=== PATIENT | male | born 1965 | race Caucasian/White ===

== ENCOUNTER 2017-03-25 09:35 | Emergency (ER) | payer OTHER ==
[~2017-03-25] VITALS: Ht 180.3 cm; Wt 102.1 kg
[~2017-03-25 09:35] MED LIST: MELOPOW PO
[2017-03-25] MEDS ORDERED: MULTCAP11 PO (09:45)
[2017-03-25] MEDS ORDERED: AMLO1TAB36 PO (09:45)
[2017-03-25] MEDS ORDERED: KETOROLAC 30 MG/ML VIAL (J1885) IV ONE (10:30)
[2017-03-25] MEDS ORDERED: GASTROGRAFIN SOLUTION 30ML (Q9963) PO ONE ×2 (10:40→11:10)
[2017-03-25 10:55] LABS: BASO % 0.5 % (0.0-1.0); EOS # 0.3 K/mm3 (0.0-0.50); EOS % 3.4 % (0.0-3.0); LARGE UNSTAINED CELL # 0.2 K/mm3 (0.0-0.4); LARGE UNSTAINED CELL % 1.9 % (0.0-4.0); LYMPH # 1.8 K/mm3 (1.5-4.5); LYMPH % 20.7 % (24.0-44.0); MEAN CORPUSCULAR HEMOGLOBIN 30.1 pg (27.0-33.0); MEAN CORPUSCULAR HGB CONC 34.4 g/dl (32.0-36.5); MEAN CORPUSCULAR VOLUME 87.5 fl (80.0-96.0); MONO # 0.5 K/mm3 (0.0-0.8); MONO % 6.6 % (0.0-5.0); NEUTROPHILS # 5.2 K/mm3 (1.8-7.7); NEUTROPHILS % 66.9 % (36.0-66.0); PLATELET COUNT, AUTOMATED 307 k/mm3 (150-450); RED CELL DISTRIBUTION WIDTH 12.9 % (11.5-14.5); WHITE BLOOD COUNT 7.8 K/mm3 (4.0-10.0)
[2017-03-25 11:15] LABS: ALBUMIN 4.3 GM/DL (3.2-5.2); ALBUMIN/GLOBULIN RATIO 1.59 (1.00-1.93); ALKALINE PHOSPHATASE 93 U/L (45-117); ALT/SGPT 39 U/L (12-78); ANION GAP 9 MEQ/L (8-16); AST/SGOT 18 U/L (15-37); BILIRUBIN,DIRECT 0.3 MG/DL (0.0-0.2); BILIRUBIN,TOTAL 1.3 MG/DL (0.2-1.0); BLOOD UREA NITROGEN 10 MG/DL (7-18); CARBON DIOXIDE LEVEL 26 MEQ/L (21-32); CHLORIDE LEVEL 104 MEQ/L (98-107); CREATININE FOR GFR 0.81 MG/DL (0.70-1.30); GLOMERULAR FILTRATION RATE > 60.0 (>56); GLUCOSE, FASTING 100 MG/DL (70-105); POTASSIUM SERUM 4.4 MEQ/L (3.5-5.1); SODIUM LEVEL 139 MEQ/L (136-145)
[2017-03-25] MEDS ORDERED: ISOVUE-370 76% 100ML VIAL (Q9967) As Ordered ONE (11:40)
[2017-03-25] MEDS ORDERED: TRAM50TA2 PO (12:29)
[2017-03-25 12:33] VITALS: BP 138/87
--- NOTE | 2017-03-25 13:08 | REP ---
CT ABDOMEN AND PELVIS WITH ORAL AND IV CONTRAST: TECHNIQUE: Axial contrast enhanced images from the lung bases to the pubic symphysis using 100 mL Isovue 370 intravenous contrast material with multiplanar reformations. In the visualized lung bases, there is a 9 mm nodular opacity medially in the right middle lobe. Liver is unremarkable in appearance. Patient has had a prior cholecystectomy. There is no evidence of significant biliary dilatation. Spleen, adrenals, and pancreas are unremarkable. There is a cyst in the upper pole of the left kidney measuring about 2.3 cm in diameter. Subcentimeter cyst is seen in the mid left kidney. There is no hydronephrosis. There are mild atherosclerotic calcifications of the abdominal aorta without aneurysm. No adenopathy is seen in the abdomen or pelvis. There is no free air or free fluid. No bowel thickening is seen. There is no evidence of appendicitis. Umbilical hernia contains fat. The aperture of the hernia is about 1.2 cm. The diameter of the hernia containing fat measures 4.4 cm. Small left inguinal hernia contains fat. There is no pelvic mass. Urinary bladder is mildly distended and grossly unremarkable. IMPRESSION: Umbilical hernia containing fat. Small left inguinal hernia containing fat. No acute abnormalities. No evidence of appendicitis. No adenopathy, free air, or free fluid. Right middle lobe demonstrates a 9 mm nodular opacity. Recommend followup CT of the chest to evaluate for other nodules. Signed by Jung Razo MD 03/25/2017 08:09 P
== END 2017-03-25 12:35 | disposition home or self-care (01) ==
LOC: M ED 10:25
DX: K42.9 Umbilical hernia without obstruction or gangrene (principal); I10 Essential (primary) hypertension; Z79.899 Other long term (current) drug therapy; F17.210 Nicotine dependence, cigarettes, uncomplicated
CPT/HCPCS: 74177; 80048; 80076; 83605; 83690; 85025; 96374; 99282; J1885; Q9963; Q9967

== ENCOUNTER → 2017-04-12 | Day surgery (SDC) | payer OTHER ==
[~2017-04-12] VITALS: Ht 177.8 cm; Wt 111.1 kg
[~2017-04-12] MED LIST changes: +ALBUTEROL SULFATE 2.5 MG/0.5 ML INH NEB SOLN As Ordered ONE; +ALBUTEROL SULFATE 2.5 MG/0.5 ML INH NEB SOLN INH ONE; +AMLO1TAB36 PO; +AMLO5CAP2 PO; +BUPIVACAINE HCL 0.25% 30 ML VIAL As Ordered ONE; +GLYCOPYRROLATE INJ 0.2 MG/ML 2 ML VIAL As Ordered ONE; +KETOROLAC 30 MG/ML VIAL (J1885) IV PRN; +LABETALOL HCL 100 MG/20 ML VIAL As Ordered ONE; +LIDOCAINE 1% SDV INJ 30 ML VIAL As Ordered ONE; +LIDOCAINE 2% INJ 100 MG/5 ML SDV (FOR ANES.) As Ordered ONE; +LR 1,000 ML IV ONE; +LR 1,000 ML IV SCH; +MIDAZOLAM INJ 2 MG/2 ML VIAL (J2250) As Ordered ONE; +MULTCAP11 PO; +NEOSTIGMINE 1MG/ML 5 ML SYRINGE (J2710) As Ordered ONE; +NORCO, ANEXSIA 5/325MG TABLET (HYDROcodone/ACETAMINOPHEN) As Ordered ONE; +NORCO, ANEXSIA 5/325MG TABLET (HYDROcodone/ACETAMINOPHEN) PO PRN; +ONDANSETRON 4MG/2ML VIAL (J2405) As Ordered ONE; +ONDANSETRON 4MG/2ML VIAL (J2405) IV PRN; +PROPOFOL 200 MG/20 ML VIAL As Ordered ONE; +ROCURONIUM BROMIDE 50 MG/5 ML VIAL As Ordered ONE; +TRAM50TA2 PO; +dexameTHASONE 4 MG/ML 1ML VIAL (J1100) As Ordered ONE; +fentaNYL 100 MCG/2 ML INJECTION (J3010) IV PRN; +fentaNYL 250 MCG/5 ML INJECTION (J3010) As Ordered ONE
--- NOTE | 2017-04-12 13:17 | ROOPDOC ---
[facility] Report Of Operation Report of Operation DATE OF PROCEDURE: 04/12/17 PREPROCEDURE DIAGNOSES: Umbilical hernia POSTPROCEDURE DIAGNOSES: Umbilical hernia, probable port site incisional hernia PROCEDURE: Laparoscopic and local hernia repair with placement of a 9 cm Parietex Composite round mesh (IPOM) SURGEON: Cong Mojica MD [employer] APPRENTICE: Rudi Raman MD ANESTHESIA: Gen. anesthesia ESTIMATED BLOOD LOSS: Approximately 10 mL. COMPLICATIONS: None REMARKS: Hernia defect located superior to the umbilicus most likely related to the umbilical port site from previous laparoscopic cholecystectomy. Defect measures about 2 cms containing omentum and preperitoneal fat PROCEDURE NOTE: 9 cm Round Parietex Composite Mesh placed as an intraperitoneal onlay (IPOM) DESCRIPTION OF PROCEDURE: Patient received 2 g of Ancef for wound prophylaxis. Patient was brought to the operating room, placed supine on the table. Sequential compression device placed for DVT prophylaxis. General endotracheal anesthesia started. The abdomen prepped and draped in usual sterile fashion. After a surgical timeout, we began our surgery Entry into the abdomen done via a left upper quadrant subcostal incision. A Veress needle inserted into the abdomen. Proper placement confirmed with saline drop technique. CO2 insufflation done to a pressure of 15 mmHg. Using the same incision 5 mm Visiport was placed under direct vision of the laparoscope. On initial entry, we went through the omentum over the side. We pulled back. No bleeding or bowel injury found. A second working port was placed over the left lower quadrant area. The hernia was found directly below a previous port site incision superior to the umbilicus. Patient has wide diastases of his midline abdominal muscle making the midline thin-appearing. There was a small defect were by and omentum was coming through. This was reduced with bimanual traction. Continued palpation shows presence of incarcerated preperitoneal fat tissue. This was reduced into the abdomen and attached from surrounding tissues. The adipose tissue overlying the area inferior to the umbilicus was cleared using Harmonic scalpel. The falciform ligament was quite attenuated and did not need to be freed. The surrounding tissues were freed from the hernia edge. The hernia edge measures . I chose a 9 cm Parietex composite round mesh. Transabdominal sutures placed at this 6 and 12 oclock position. This is rolled tightly and placed into the abdomen. This was positioned to Center on the hernia defect. Transabdominal suture passer used to retrieve the sutures to position the mesh. Once adequate overlap of the mesh to the hernia defect was ensured. 2 rows of secure strap Vicryl tacks then placed to secure the mesh to the abdominal wall. The outer tacks were at the edge of the mesh and the inner tacks were chest outside of the hernia defect. We inspected the abdomen for hemostasis. Surveyed the abdomen for any injury. Once assured, the abdomen was desufflated and all ports removed. Skin incisions closed with 4-0 Monocryl subcuticular fashion. Dermabond used for dressing. Patients promptly awake and extubated and brought to the recovery room in stable condition. All counts of sponges and instruments verified to be correct. CONG MOJICA MD April 12, 2017 13:17
[2017-04-12 15:00] VITALS: BP 142/87
== END | disposition home or self-care (01) ==
LOC: M SDC 10:15
PROVIDERS: ATTEND Surgery
DX: K42.9 Umbilical hernia without obstruction or gangrene (principal); I10 Essential (primary) hypertension; M12.9 Arthropathy, unspecified; M54.9 Dorsalgia, unspecified; G47.30 Sleep apnea, unspecified; F17.290 Nicotine dependence, other tobacco product, uncomplicated; Z79.899 Other long term (current) drug therapy
CPT/HCPCS: 49652; 88302; C1781; J0690; J1100; J2250; J2405; J2710; J3010

== ENCOUNTER 2019-04-03 08:04 | Emergency (ER) | payer OTHER ==
[~2019-04-03] VITALS: Ht 180.3 cm; Wt 100.2 kg
[~2019-04-03 08:04] MED LIST changes: -ALBUTEROL SULFATE 2.5 MG/0.5 ML INH NEB SOLN As Ordered ONE; -ALBUTEROL SULFATE 2.5 MG/0.5 ML INH NEB SOLN INH ONE; -AMLO1TAB36 PO; +AMLO1TAB37 PO; -BUPIVACAINE HCL 0.25% 30 ML VIAL As Ordered ONE; -GLYCOPYRROLATE INJ 0.2 MG/ML 2 ML VIAL As Ordered ONE; -KETOROLAC 30 MG/ML VIAL (J1885) IV PRN; -LABETALOL HCL 100 MG/20 ML VIAL As Ordered ONE; -LIDOCAINE 1% SDV INJ 30 ML VIAL As Ordered ONE; -LIDOCAINE 2% INJ 100 MG/5 ML SDV (FOR ANES.) As Ordered ONE; -LR 1,000 ML IV ONE; -LR 1,000 ML IV SCH; -MIDAZOLAM INJ 2 MG/2 ML VIAL (J2250) As Ordered ONE; -NEOSTIGMINE 1MG/ML 5 ML SYRINGE (J2710) As Ordered ONE; -NORCO, ANEXSIA 5/325MG TABLET (HYDROcodone/ACETAMINOPHEN) As Ordered ONE; -NORCO, ANEXSIA 5/325MG TABLET (HYDROcodone/ACETAMINOPHEN) PO PRN; -ONDANSETRON 4MG/2ML VIAL (J2405) As Ordered ONE; -ONDANSETRON 4MG/2ML VIAL (J2405) IV PRN; -PROPOFOL 200 MG/20 ML VIAL As Ordered ONE; -ROCURONIUM BROMIDE 50 MG/5 ML VIAL As Ordered ONE; -dexameTHASONE 4 MG/ML 1ML VIAL (J1100) As Ordered ONE; -fentaNYL 100 MCG/2 ML INJECTION (J3010) IV PRN; -fentaNYL 250 MCG/5 ML INJECTION (J3010) As Ordered ONE
[2019-04-03] MEDS ORDERED: NAPR-885 PO (08:08)
[2019-04-03] MEDS ORDERED: medical marijuana PO (08:08)
[2019-04-03] MEDS ORDERED: AUGMENTIN 875 MG TAB PO ONE (09:00)
[2019-04-03] MEDS ORDERED: LIDOCAINE 2% W/EPIN INJ 20ML **PRES FREE INJ ONE (09:00)
[2019-04-03] MEDS ORDERED: NORC1TAB7 PO (09:07)
[2019-04-03] MEDS ORDERED: AUGM875T28 PO (09:07)
[2019-04-03 09:17] VITALS: BP 144/78
== END 2019-04-03 09:19 | disposition home or self-care (01) ==
LOC: M ED 08:04
DX: K04.7 Periapical abscess without sinus (principal); K02.9 Dental caries, unspecified; F17.210 Nicotine dependence, cigarettes, uncomplicated; Z79.899 Other long term (current) drug therapy

== ENCOUNTER 2020-02-12 17:31 | Emergency (ER) | payer OTHER ==
[~2020-02-12] VITALS: Ht 180.3 cm; Wt 95.9 kg
[~2020-02-12 17:31] MED LIST changes: -AMLO5CAP2 PO; +AMLO5CAP44 PO; +AUGM875T28 PO; +NAPR-885 PO; +NORC1TAB7 PO; +medical marijuana PO
[2020-02-12] MEDS ORDERED: MELO15TA28 PO (17:39)
[2020-02-12] MEDS ORDERED: PREG100CA PO (17:39)
[2020-02-12] MEDS ORDERED: NS 1,000 ML IV ONE (18:00)
[2020-02-12] MEDS ORDERED: IPRATROPIUM 0.5MG/ALBUTEROL 2.5MG INH SOL UD 3ML (DUONEB)(J7620) NEB ONE (18:00)
[2020-02-12 18:24] LABS: INFLUENZA A AMPLIFICATION POSITIVE (NEGATIVE); INFLUENZA B AMPLIFICATION NEGATIVE (NEGATIVE)
[2020-02-12 18:28] LABS: BASO % 0.3 % (0.0-1.0); HEMATOCRIT 47.9 % (42.0-52.0); HEMOGLOBIN 16.7 g/dl (13.5-17.5); LYMPH # 1.1 10^3/uL (1.5-5.0); LYMPH % 15.8 % (24.0-44.0); MEAN CORPUSCULAR HEMOGLOBIN 29.3 pg (27.0-33.0); MEAN CORPUSCULAR HGB CONC 34.9 g/dl (32.0-36.5); MEAN CORPUSCULAR VOLUME 84.2 fl (80.0-96.0); MONO # 1.3 10^3/uL (0.0-0.8); MONO % 18.9 % (0.0-5.0); NEUTROPHILS # 4.3 10^3/uL (1.5-8.5); NEUTROPHILS % 64.8 % (36.0-66.0); PLATELET COUNT, AUTOMATED 200 10^3/uL (150-450); RED BLOOD COUNT 5.69 10^6/uL (4.30-6.10); WHITE BLOOD COUNT 6.7 10^3/uL (4.0-10.0)
[2020-02-12] MEDS ORDERED: methylPREDNISolone INJ 125 MG/2 ML VIAL (J2930) IV ONE (18:45)
[2020-02-12] MEDS ORDERED: ALBUTEROL 90 MCG/ACT 8GM HFA INHALER INH ONE (18:45)
[2020-02-12 18:52] LABS: ALBUMIN 4.2 GM/DL (3.2-5.2); BILIRUBIN,DIRECT 0.5 MG/DL (0.0-0.2); BILIRUBIN,TOTAL 1.5 MG/DL (0.2-1.0); CALCIUM LEVEL 8.3 MG/DL (8.5-10.1); CREATININE FOR GFR 1.46 MG/DL (0.70-1.30); GLOMERULAR FILTRATION RATE 53.6 (>56); POTASSIUM SERUM 4.1 MEQ/L (3.5-5.1); TOTAL PROTEIN 7.3 GM/DL (6.4-8.2)
[2020-02-12] MEDS ORDERED: ISOVUE-370 76% 100ML VIAL (Q9967) As Ordered ONE (19:01)
--- NOTE | 2020-02-12 19:09 | REP ---
HISTORY: Dyspnea. COMPARISON: 03/24/2016 FINDINGS: The superior mediastinal structures are midline. The cardiac silhouette is unremarkable in size, shape and position. The diaphragmatic surfaces of the lungs are regular and the costophrenic angles are clear. The pulmonary steve are clear. The imaged osseous structures are intact. IMPRESSION: There is no acute cardiopulmonary disease. No change from the prior exam. Electronically Signed by Tino Aggarwal DO 02/12/2020 07:32 P
--- NOTE | 2020-02-12 20:13 | REPVR ---
PROCEDURE INFORMATION: Exam: CT Abdomen And Pelvis With Contrast Exam date and time: 02/12/2020 7:05 PM Age: 54 years old Clinical indication: Abdominal pain; Localized; Right lower quadrant (rlq); Additional info: Rlq pain/diarrhea TECHNIQUE: Imaging protocol: Computed tomography of the abdomen and pelvis with intravenous contrast. Radiation optimization: All CT scans at this facility use at least one of these dose optimization techniques: automated exposure control; mA and/or kV adjustment per patient size (includes targeted exams where dose is matched to clinical indication); or iterative reconstruction. Contrast material: ISOVUE 370; Contrast volume: 100 ml; Contrast route: IV; COMPARISON: CT ABD/PEL W/IV ORAL CONTRAS 03/25/2017 11:51 AM FINDINGS: Lungs: The 9 mm nodular opacity in the medial segment of the right middle lobe seen in the prior CT abdomen and pelvis on 03/25/2017 has decreased in size to 6 mm in the current examination (image 3 of the axial series 204) and no further follow-up of this nodular opacity is necessary. Heart: No cardiomegaly or pericardial effusion. Liver: The attenuation of the liver is lower compared to the spleen, which can be seen with fatty liver infiltration. No liver lesion is seen. The contour of the liver is smooth. No hepatomegaly is noted. Gallbladder and bile ducts: There has been a cholecystectomy. There is no fluid collection in the gallbladder fossa. No dilation of the bile ducts is noted. Pancreas: Normal. No dilation of the main pancreatic duct is noted. There is no inflammatory fat stranding around the pancreas to suggest acute pancreatitis. Spleen: No splenic lesion is noted. The spleen is enlarged and measures 13.7 cm. Adrenals: Normal. No adrenal mass is noted. Kidneys and ureters: There is a 3 mm calculus in an inferior pole calyx of the right kidney. No stones are noted in the ureters or left kidney. There is no hydronephrosis or hydroureter. There are no wedge-shaped areas of low attenuation in the kidneys to suggest pyelonephritis. There is no renal abscess or perinephric fluid collection. There is a 2.4 cm simple exophytic cyst arising from the superior pole of the left kidney, which is stable compared to the prior CT abdomen and pelvis on 03/25/2017 and for which follow-up is not necessary. Stomach and bowel: There is colonic diverticulosis without evidence for diverticulitis. There is no evidence for a bowel obstruction, colitis, pneumatosis intestinalis, intussusception, volvulus, or perforated viscus. The descending colon and proximal sigmoid colon are decompressed, limiting their optimal evaluation. There is no pericolonic inflammatory fat stranding. There is liquid feces in the colon, which will lead to diarrhea. Appendix: Normal. There is no evidence for appendicitis. Intraperitoneal space: No free air. No fluid collection. Retroperitoneal space: No fluid collection. No mass. Vasculature: The abdominal aorta is patent, normal in caliber, and there is no dissection. The iliac arteries, common femoral arteries, renal arteries, celiac artery, superior mesenteric artery, and inferior mesenteric artery are patent. There are mild atherosclerotic calcifications. The iliac veins, inferior vena cava, renal veins, hepatic veins, portal veins, splenic vein, superior mesenteric vein, and inferior mesenteric vein are patent. Lymph nodes: No enlarged lymph nodes. Bladder: There is thickening of the wall of the partially distended urinary bladder. No stones are seen in the bladder. Reproductive: The prostate gland and seminal vesicles are unremarkable. Bones/joints: No fracture or dislocation is noted. There is no suspicious osteolytic or osteoblastic lesion. There is a slight dextroscoliosis of the lumbar spine and degenerative changes in the lumbar spine. Soft tissues: There is a small fat containing indirect left inguinal hernia and a small fat containing direct right inguinal hernia, which are similar in appearance compared to the prior CT abdomen and pelvis on 03/25/2017. Postoperative changes are noted from an umbilical hernia repair that has been performed since the prior CT on 03/25/2017. IMPRESSION: 1. Thickening of the wall of the urinary bladder, which may be secondary to its partially distended state, bladder wall hypertrophy, or cystitis. Correlation with urinalysis is suggested. 2. Normal appendix. 3. Small fat containing direct right inguinal hernia and a small fat containing indirect left inguinal hernia, which are unchanged compared to the prior CT abdomen and pelvis on 03/25/2017. 4. Colonic diverticulosis without evidence for diverticulitis. Liquid feces in the colon, which will lead to diarrhea. 5. Nonobstructive right nephrolithiasis. 6. Splenomegaly. Electronically signed by: Garth Mari On 02/12/2020 20:12:57 PM
[2020-02-12] MEDS ORDERED: AMOXICILLIN 500 MG CAP PO ONE (20:30)
[2020-02-12 20:31] VITALS: BP 125/85
[2020-02-12] MEDS ORDERED: AMOX500T PO (20:53)
[2020-02-12 21:16] VITALS: O2SAT 96
[2020-02-12] MEDS ORDERED: ALBU83IN NEB (23:10)
--- NOTE | 2020-02-14 18:37 | ED PDOC ---
Post-Departure Follow-Up dr hope faxed formal report of ct abd/p for fu Sergo Arce MD Feb 14, 2020 18:37
== END 2020-02-12 21:30 | disposition home or self-care (01) ==
LOC: M ED 17:31
DX: J21.9 Acute bronchiolitis, unspecified (principal); J09.X2 Influenza due to identified novel influenza A virus with other respiratory manifestations; I10 Essential (primary) hypertension; G47.33 Obstructive sleep apnea (adult) (pediatric); Z79.899 Other long term (current) drug therapy; F17.210 Nicotine dependence, cigarettes, uncomplicated
CPT/HCPCS: 71046; 74177; 80048; 80076; 83605; 85025; 87040; 87502; 87880; 94640; 96361; 96374; 99284; J2930; Q9967

== ENCOUNTER → 2023-08-13 | Outpatient (REF) | payer OTHER ==
[~2023-08-13] MED LIST changes: +ALBU2.5V10 NEB; +AMOX500T PO; +MELO15TA28 PO; +PREG100CA PO
== END ==
LOC: M SMT PRO 13:24
PROVIDERS: ATTEND Urology
DX: R97.20 Elevated prostate specific antigen [PSA] (principal)

== ENCOUNTER → 2024-04-24 | Outpatient (CLI) | payer OTHER | LOC: M RAD 06:49 | PROVIDERS: ATTEND Internal Medicine | DX: Z87.891 Personal history of nicotine dependence (principal) ==

== ENCOUNTER → 2024-06-03 | Outpatient (REF) | LOC: M PLAIMG 11:42 | PROVIDERS: ATTEND Internal Medicine | DX: M51.36 Other intervertebral disc degeneration, lumbar region (principal) ==

== ENCOUNTER → 2024-07-29 | Outpatient (REF) | LOC: M PLAIMG 09:01 | PROVIDERS: ATTEND Internal Medicine | DX: R52 Pain, unspecified (principal); M17.12 Unilateral primary osteoarthritis, left knee ==

== ENCOUNTER → 2024-09-15 | Outpatient (REF) | payer OTHER ==
[2024-09-16 18:23] LABS: PSA FREE 1.6 ng/mL; PSA TOTAL 6.2 ng/mL (< OR = 4.0)
== END ==
LOC: M LAB REF 12:18
PROVIDERS: ATTEND Internal Medicine
DX: R97.20 Elevated prostate specific antigen [PSA] (principal)

== ENCOUNTER → 2024-10-26 | Outpatient (CLI) | payer OTHER | LOC: M PLAIMG 13:07 | PROVIDERS: ATTEND Internal Medicine | DX: R91.1 Solitary pulmonary nodule (principal) ==

== ENCOUNTER → 2025-01-21 | Outpatient (CLI) | payer OTHER ==
[2025-01-21 12:20] LABS: PLATELET COUNT, AUTOMATED 244 10^3/uL (150-450)
[2025-01-21 12:35] LABS: INR 0.92; PARTIAL THROMBOPLASTIN TIME 29.5 SECONDS (24.8-34.2); PROTHROMBIN TIME 12.7 SECONDS (12.5-14.5)
== END ==
LOC: M PLALAB 09:18
PROVIDERS: ATTEND Physician Assistant
DX: Z01.818 Encounter for other preprocedural examination (principal)

== ENCOUNTER → 2025-04-13 | Outpatient (CLI) | payer OTHER ==
[~2025-04-13] MED LIST changes: +PREG-35 PO; -PREG100CA PO
== END ==
LOC: M RAD 14:37
PROVIDERS: ATTEND Internal Medicine
DX: R94.4 Abnormal results of kidney function studies (principal)

== ENCOUNTER → 2025-04-15 | Outpatient (CLI) | payer OTHER ==
[~2025-04-15] MED LIST changes: +PROHANCE 279.3MG/ML 15ML VIAL As Ordered ONE; +PROHANCE 279.3MG/ML 5ML VIAL As Ordered ONE
== END ==
LOC: M RAD 10:40
PROVIDERS: ATTEND Urology
DX: R97.20 Elevated prostate specific antigen [PSA] (principal)

== ENCOUNTER → 2025-11-05 | Outpatient (CLI) | payer OTHER ==
[~2025-11-05] MED LIST changes: -PROHANCE 279.3MG/ML 15ML VIAL As Ordered ONE; -PROHANCE 279.3MG/ML 5ML VIAL As Ordered ONE
== END ==
LOC: M RAD 13:32
PROVIDERS: ATTEND Internal Medicine
DX: Z87.891 Personal history of nicotine dependence (principal)